=== PATIENT | female | born 1960 | race Caucasian/White ===

== ENCOUNTER 2016-10-19 17:26 | Inpatient (IN) | payer MEDICARE, OTHER ==
[~2016-10-19] VITALS: Ht 165.1 cm; Wt 63.5 kg
[2016-10-19 17:26] VITALS: BP 104/47; PULSE 130; RESP 45; TEMP 97.8; O2SAT 91
[2016-10-19] MEDS: LEVOFLOXACIN 500 MG/D5W 100 ML IV ONE ×3 (18:04→18:30)
[2016-10-19 18:09] LABS: MEAN CORPUSCULAR HEMOGLOBIN 32 pg (27-31)
[2016-10-19 18:12] LABS: RED BLOOD CELL COUNT(AUTO) 1.94 MIL/uL (4.2-6.2); WHITE BLOOD COUNT (AUTO) 11.5 K/uL (4.8-10.8)
[2016-10-19 18:13] LABS: MEAN CORPUSCULAR HGB CONC 35 % (32-36); MEAN CORPUSCULAR VOLUME 91 fL (79.0-98.0); RED CELL DISTRIBUTION WIDTH 13.8 % (9.0-15.0)
[2016-10-19 18:14] LABS: INR 1.3 (0.8-1.2); PROTHROMBIN TIME 14.5 SECS (9.5-12.5)
[2016-10-19 18:21] LABS: HEMATOCRIT 17.5 % (36-48); HEMOGLOBIN 6.1 g/dL (12.0-16.0); PLATELET COUNT (AUTO) 5 K/uL (130-430)
[2016-10-19] MEDS ORDERED: PRED10TA PO (18:43)
[2016-10-19] MEDS ORDERED: ESCI10TA PO (18:43)
[2016-10-19] MEDS ORDERED: NICO1PAT23 TD (18:43)
[2016-10-19] MEDS ORDERED: POLY17PO4 PO (18:43)
[2016-10-19] MEDS ORDERED: BUSP5TAB3 PO (18:43)
[2016-10-19] MEDS ORDERED: DULR10 RC (18:43)
[2016-10-19] MEDS ORDERED: SENN-153 PO (18:43)
[2016-10-19] MEDS ORDERED: METO-290 PO (18:43)
[2016-10-19] MEDS ORDERED: OMEP10SU PO (18:43)
[2016-10-19] MEDS ORDERED: LevALBUTEROL HCL 1.25 MG/0.5 ML *CONC.* VIAL.NEB (XOPENEX CONC.) INH ONE (18:45)
[2016-10-19] MEDS ORDERED: PANTOPRAZOLE SODIUM 40 MG/VIAL (PROTONIX) IVP ONE ×2 (18:45→20:30)
[2016-10-19 18:48] LABS: CORRECTED WHITE BLOOD COUNT 10.7 K/uL (4.5-11.0); LYMPHOCYTES % (MANUAL) 27 % (20-46)
[2016-10-19 18:49] LABS: ATYPICAL LYMPHOCYTES % 0 % (0-0); BASOPHILS % (MANUAL) 0 % (0-2); EOSINOPHILS % (MANUAL) 6 % (0-7); METAMYELOCYTES % 1 % (0-0); MONOCYTES % (MANUAL) 4 % (0-11)
[2016-10-19 18:53] LABS: BAND % (MANUAL) 6 % (0-6); MYELOCYTES % 3 % (0-0)
[2016-10-19 19:02] LABS: CALCIUM 8.4 mg/dL (8.4-11.0); CREATININE 0.75 mg/dL (0.55-1.30); POTASSIUM 4.7 mmol/L (3.5-5.1)
[2016-10-19 19:07] LABS: ALBUMIN 2.5 g/dL (3.4-4.8); TOTAL BILIRUBIN 4.9 mg/dL (0.0-1.0); TOTAL PROTEIN, SERUM 5.4 g/dL (6.4-8.3)
[2016-10-19 19:18] LABS: BILIRUBIN,URINE 2+ (NEGATIVE); CLARITY/URINE SL HAZY (CLEAR); COLOR,URINE AMBER (YELLOW); GLUCOSE,URINE NEGATIVE (NEGATIVE); KETONES,URINE TRACE (NEGATIVE); LEUKOCYTE ESTERASE ,URINE NEGATIVE (NEGATIVE); NITRITE, URINE NEGATIVE (NEGATIVE); PH,URINE 5.5 (5.0-8.0); PROTEIN URINE TRACE (NEGATIVE)
[2016-10-19 19:19] LABS: BLOOD, URINE TRACE (NEGATIVE); UROBILINOGEN,URINE >=8 (0.2-1.0)
[2016-10-19 19:30] VITALS: BP 123/56; PULSE 128; RESP 34; TEMP 98.1; O2SAT 99
[2016-10-19 20:00] VITALS: BP 145/68; PULSE 128; RESP 31; O2SAT 98
[2016-10-19 20:01] LABS: BACTERIA,URINE MANY /HPF (None Seen); MUCUS,URINE None Seen /LPF (None Seen)
[2016-10-19] MEDS ORDERED: LEVALBUTEROL HCL 0.63 MG/3 ML VIAL.NEB INH PRN (20:15)
[2016-10-19] MEDS ORDERED: ACETAMINOPHEN 325 MG TABLET PO PRN (20:30)
[2016-10-19] MEDS ORDERED: DIPHENHYDRAMINE HCL 25 MG CAPSULE PO PRN (20:30)
[2016-10-19 21:00] VITALS: BP 150/67; PULSE 128; RESP 19; O2SAT 98
[2016-10-19] MEDS: LEVOFLOXACIN 500 MG/D5W 100 ML IV SCH (21:00)
[2016-10-19 22:00] VITALS: BP 131/60; PULSE 123; RESP 20; O2SAT 98
[2016-10-19] MEDS: LACTOBACILLUS RHAMNOSUS GG 1 CAP CAPSULE PO SCH (22:36)
[2016-10-19 23:00] VITALS: BP 129/46; PULSE 127; RESP 23; O2SAT 98
[2016-10-20] VITALS (25 sets, daily range): BP systolic 118–151; BP diastolic 61–83; PULSE 86–128; RESP 13–28; TEMP 97.2–100.2; O2SAT 93–98
[2016-10-20] MEDS: LEVALBUTEROL HCL 0.63 MG/3 ML VIAL.NEB INH SCH ×4 (01:42→19:56)
[2016-10-20] MEDS: NACL 0.9% 1,000 ML IV SCH ×2 (06:18→18:00)
[2016-10-20 08:00] LABS: HEMOGLOBIN 7.6 g/dL (12.0-16.0); MEAN CORPUSCULAR HEMOGLOBIN 31 pg (27-31); MEAN CORPUSCULAR HGB CONC 35 % (32-36); MEAN CORPUSCULAR VOLUME 89 fL (79.0-98.0); RED BLOOD CELL COUNT(AUTO) 2.47 MIL/uL (4.2-6.2); RED CELL DISTRIBUTION WIDTH 13.6 % (9.0-15.0); WHITE BLOOD COUNT (AUTO) 8.7 K/uL (4.8-10.8)
[2016-10-20 08:08] LABS: PLATELET COUNT (AUTO) 31 K/uL (130-430)
[2016-10-20 08:10] LABS: INR 1.3 (0.8-1.2); PROTHROMBIN TIME 13.7 SECS (9.5-12.5)
[2016-10-20 08:13] LABS: ALBUMIN 2.5 g/dL (3.4-4.8); CALCIUM 8.5 mg/dL (8.4-11.0); CREATININE 0.64 mg/dL (0.55-1.30); POTASSIUM 3.8 mmol/L (3.5-5.1); TOTAL BILIRUBIN 5.5 mg/dL (0.0-1.0); TOTAL PROTEIN, SERUM 5.5 g/dL (6.4-8.3)
[2016-10-20 08:27] LABS: ATYPICAL LYMPHOCYTES % 6 % (0-0); BAND % (MANUAL) 15 % (0-6); CORRECTED WHITE BLOOD COUNT 8.1 K/uL (4.5-11.0); EOSINOPHILS % (MANUAL) 5 % (0-7); LYMPHOCYTES % (MANUAL) 27 % (20-46); MONOCYTES % (MANUAL) 7 % (0-11)
[2016-10-20 08:28] LABS: BASOPHILS % (MANUAL) 1 % (0-2); METAMYELOCYTES % 1 % (0-0)
[2016-10-20] MEDS: PANTOPRAZOLE SODIUM 40 MG/VIAL (PROTONIX) IVP SCH (09:32)
[2016-10-20] MEDS: LACTOBACILLUS RHAMNOSUS GG 1 CAP CAPSULE PO SCH ×2 (09:32→20:43)
[2016-10-20 15:06] LABS: BASOPHILS # (AUTO) 0.2 K/uL (0.0-0.2); BASOPHILS % (AUTO) 1.9 % (0.0-2.0); EOSINOPHILS # (AUTO) 0.7 K/uL (0.0-0.4); EOSINOPHILS % (AUTO) 7.1 % (0.0-4.0); HEMATOCRIT 26.8 % (36-48); HEMOGLOBIN 9.2 g/dL (12.0-16.0); LYMPHOCYTES % (AUTO) 30.6 % (20.5-51.5); MEAN CORPUSCULAR HEMOGLOBIN 31 pg (27-31); MEAN CORPUSCULAR HGB CONC 34 % (32-36); MEAN CORPUSCULAR VOLUME 89 fL (79.0-98.0); MONOCYTES # (AUTO) 0.8 K/uL (0.0-1.0); MONOCYTES % (AUTO) 8.3 % (1.7-9.3); NEUTROPHILS # (AUTO) 5.1 K/uL (1.8-7.7); NEUTROPHILS % (AUTO) 52.1 % (40.0-70.0); RED BLOOD CELL COUNT(AUTO) 3.01 MIL/uL (4.2-6.2); RED CELL DISTRIBUTION WIDTH 13.4 % (9.0-15.0); WHITE BLOOD COUNT (AUTO) 9.8 K/uL (4.8-10.8)
[2016-10-20 15:19] LABS: PLATELET COUNT (AUTO) 11 K/uL (130-430)
[2016-10-20] MEDS: LEVOFLOXACIN 500 MG/D5W 100 ML IV SCH (20:44)
[2016-10-20] MEDS ORDERED: ONDANSETRON HCL 4 MG/2 ML VIAL IVP PRN (22:00)
[2016-10-21] VITALS (20 sets, daily range): BP systolic 131–159; BP diastolic 57–96; PULSE 119–132; RESP 11–29; TEMP 97.6–98.8; O2SAT 88–96; Ht 165.1 cm; Wt 63.5 kg
[2016-10-21] MEDS: MORPHINE 2 MG/ML INJ. SYRINGE IVP PRN ×3 (00:47→19:01)
[2016-10-21] MEDS: LEVALBUTEROL HCL 0.63 MG/3 ML VIAL.NEB INH SCH ×2 (01:38→16:01)
[2016-10-21] MEDS: NACL 0.9% 1,000 ML IV SCH ×2 (02:36→12:20)
[2016-10-21 06:36] LABS: ALBUMIN 2.3 g/dL (3.4-4.8); CALCIUM 8.3 mg/dL (8.4-11.0); CREATININE 0.48 mg/dL (0.55-1.30); POTASSIUM 3.8 mmol/L (3.5-5.1); TOTAL BILIRUBIN 7.5 mg/dL (0.0-1.0); TOTAL PROTEIN, SERUM 5.3 g/dL (6.4-8.3)
[2016-10-21 06:46] LABS: HEMATOCRIT 23.8 % (36-48); HEMOGLOBIN 8.3 g/dL (12.0-16.0); MEAN CORPUSCULAR HEMOGLOBIN 31 pg (27-31); MEAN CORPUSCULAR HGB CONC 35 % (32-36); MEAN CORPUSCULAR VOLUME 88 fL (79.0-98.0); RED CELL DISTRIBUTION WIDTH 14.4 % (9.0-15.0); WHITE BLOOD COUNT (AUTO) 8.7 K/uL (4.8-10.8)
[2016-10-21 06:54] LABS: PLATELET COUNT (AUTO) 25 K/uL (130-430)
[2016-10-21 07:54] LABS: BAND % (MANUAL) 9 % (0-6); EOSINOPHILS % (MANUAL) 5 % (0-7); LYMPHOCYTES % (MANUAL) 33 % (20-46); MONOCYTES % (MANUAL) 6 % (0-11)
[2016-10-21 07:55] LABS: BASOPHILS % (MANUAL) 0 % (0-2); CORRECTED WHITE BLOOD COUNT 7.3 K/uL (4.5-11.0); METAMYELOCYTES % 2 % (0-0); MYELOCYTES % 1 % (0-0)
[2016-10-21] MEDS: LACTOBACILLUS RHAMNOSUS GG 1 CAP CAPSULE PO SCH (08:17)
[2016-10-21] MEDS ORDERED: ESCITALOPRAM OXALATE 10 MG TABLET PO SCH (10:30)
[2016-10-21] MEDS ORDERED: busPIRone HCL 5 MG TABLET PO ONE (10:45)
[2016-10-21] MEDS ORDERED: CITALOPRAM HYDROBROMIDE 20 MG TABLET PO ONE (10:45)
[2016-10-21] MEDS ORDERED: methylPREDNISolone SOD SUCC/PF 62.5 MG/ML VIAL IVP ONE (10:45)
[2016-10-21] MEDS: ALPRAZolam 0.25 MG TABLET PO PRN ×2 (10:56→18:55)
[2016-10-21] MEDS: PANTOPRAZOLE SODIUM 40 MG/VIAL (PROTONIX) IVP SCH (10:58)
[2016-10-21] MEDS ORDERED: IOHEXOL 100 ML IV ONE (12:14)
[2016-10-21] MEDS ORDERED: methylPREDNISolone SOD SUCC/PF 62.5 MG/ML VIAL IVP SCH (14:00)
[2016-10-21] MEDS ORDERED: busPIRone HCL 5 MG TABLET PO SCH (21:00)
[2016-10-22] MEDS ORDERED: CITALOPRAM HYDROBROMIDE 20 MG TABLET PO SCH (09:00)
== END 2016-10-21 20:48 | disposition short-term general hospital (02) | DRG 180 ==
LOC: SED 17:26 → SIC 19:07
PROVIDERS: ADMIT Internal Medicine; ATTEND Internal Medicine
PROC: 30233N1 Transfusion of Nonautologous Red Blood Cells into Peripheral Vein, Percutaneous Approach (ICD-10-PCS; 2016-10-19)
PROC: 30233R1 Transfusion of Nonautologous Platelets into Peripheral Vein, Percutaneous Approach (ICD-10-PCS; 2016-10-19)
PROC: 30233L1 Transfusion of Nonautologous Fresh Plasma into Peripheral Vein, Percutaneous Approach (ICD-10-PCS; principal; 2016-10-20)
PROC: 30233K1 Transfusion of Nonautologous Frozen Plasma into Peripheral Vein, Percutaneous Approach (ICD-10-PCS; 2016-10-20)
DX: C34.90 Malignant neoplasm of unspecified part of unspecified bronchus or lung (principal); J18.9 Pneumonia, unspecified organism; D61.818 Other pancytopenia; D68.9 Coagulation defect, unspecified; C78.7 Secondary malignant neoplasm of liver and intrahepatic bile duct; F17.210 Nicotine dependence, cigarettes, uncomplicated; F32.9 Major depressive disorder, single episode, unspecified; Z66 Do not resuscitate; I95.9 Hypotension, unspecified; Z88.5 Allergy status to narcotic agent; Z88.8 Allergy status to other drugs, medicaments and biological substances; Z88.6 Allergy status to analgesic agent
CPT/HCPCS: 36415; 71010; 71260-TC; 76700-TC; 80053; 81000-TC; 82272; 83605; 83880; 84484; 85007; 85018-TC; 85025; 85027; 85610-TC; 85730-TC; 86886; 86900; 86901; 86920; 87040-TC; 87081; 87086; 93005; 93306; 94640; 96374; 99291; C1751; C9113; J1956; J2270; J2405; J2930; J7030; J7050; P9021; P9034; P9059; Q9967